=== PATIENT | male | born 1960 | race Caucasian/White ===

== ENCOUNTER 2023-06-17 11:40 | Emergency (ER) | payer SELFPAY ==
[~2023-06-17] VITALS: Ht 188 cm; Wt 100.0 kg
[2023-06-17 11:46] VITALS: BP 132/92; PULSE 86; RESP 18; TEMP 98.2; O2SAT 98
[2023-06-17 12:26] LABS: BASOPHILS % 0.7 % (0.0-2.0); EOSINOPHILS % 3.6 % (0.0-5.0); HEMATOCRIT. 39.2 % (42.0-52.0); HEMOGLOBIN. 13.4 g/dL (14.0-18.0); LYMPHOCYTES % 18.9 % (20.0-50.0); MEAN CORPUSCULAR HEMOGLOBIN 30.4 pg (28.0-32.0); MEAN CORPUSCULAR HGB CONC 34.3 g/dL (31.0-37.0); MEAN CORPUSCULAR VOLUME 88.6 fL (80.0-94.0); MEAN PLATELET VOLUME 7.4 fl (7.4-10.4); MONOCYTES % 8.4 % (2.0-8.0); NEUTROPHILS % 68.4 % (40.0-76.0); PLATELET 254 x1000/uL (130-400); RED BLOOD CELL COUNT 4.43 mill/uL (4.7-6.1); RED CELL DISTRIBUTION WIDTH 13.3 % (11.6-14.6); WHITE BLOOD COUNT 6.3 x1000/uL (4.5-11.0)
[2023-06-17 12:35] LABS: ALBUMIN 3.7 g/dL (3.4-5.0); CALCIUM 8.2 mg/dL (8.5-10.1); CHLORIDE 109 mEq/L (98-107); INDEX HEMOLYSI 1 (1-3); INDEX ICTERIC 1 (1-4); INDEX LIPEMIC 1 (1-3); POTASSIUM 3.8 mEq/L (3.5-5.1); SODIUM 139 mEq/L (136-145)
[2023-06-17 12:44] LABS: ALANINE AMINOTRANSFERASE 32 IU/L (13-61); ASPARTATE AMINOTRANSFERASE 35 IU/L (15-37); BILIRUBIN TOTAL 0.4 mg/dL (0.1-1.0); CARBON DIOXIDE 26 mEq/L (21-32); CREATININE 0.8 mg/dL (0.6-1.3); GLUCOSE 124 mg/dL (70-105); NT PRO B-TYPE NATRIURETIC PEP 677 pg/mL (5-125); PROTEIN TOTAL 6.9 g/dL (6.0-8.3); TROPONIN I HIGH SENSITIVITY 55 ng/L (<78); UREA NITROGEN BLOOD 17 mg/dL (7-21)
== END 2023-06-17 13:55 | disposition home or self-care (01) ==
LOC: ER 11:56
DX: R51.9 Headache, unspecified (principal); I25.2 Old myocardial infarction
CPT/HCPCS: 36415; 71045; 80053; 83880; 84484; 85025; 93005; 99291